=== PATIENT | male | born 1955 | race Caucasian/White ===

== ENCOUNTER 2018-09-30 15:58 | Emergency (ER) | payer MEDICARE, MEDICAID ==
[2018-09-30 17:05] VITALS: BP 150/78
--- NOTE | 2018-09-30 17:28 | UC ---
Respiratory Complaint HPI - HPI Summary HPI Summary: 63 yo male with 3-4 day hx of progressively worsening cough no f/c + left lat chest pain with cough productive at times wheezing out of neb solution - History of Current Complaint Chief Complaint: UCGeneralIllness Stated Complaint: COUGH,RIB PAIN Time Seen by Provider: 09/30/18 17:15 Hx Obtained From: Patient Onset/Duration: Gradual Onset, Lasting Days Timing: Constant Severity Initially: Moderate Severity Currently: None - unless coughing Pain Intensity: 0 Pain Scale Used: 0-10 Numeric Character: Cough: Productive Aggravating Factors: Deep Breaths Associated Signs And Symptoms: Positive: Pleuritic Chest Pain - with cough, Wheezing. Negative: Fever, Chills, Hemoptysis, Dizziness, Edema, URI, Nasal Congestion, Hoarseness, Sinus Discomfort - Allergies/Home Medications Allergies/Adverse Reactions: Allergies Allergy/AdvReac Type Severity Reaction Status Date / Time Penicillins Allergy Intermediate Hives Verified 09/30/18 17:05 Home Medications: Home Medications Albuterol HFA INHALER* [Ventolin HFA Inhaler*] 2 puff INH Q4H PRN 09/30/18 [ History Confirmed 09/30/18] Atorvastatin* [Lipitor*] 80 mg PO DAILY 09/30/18 [History Confirmed 09/30/18] Bupropion XL* [Wellbutrin XL *] 150 mg PO DAILY 09/30/18 [History Confirmed ] Clopidogrel TAB* [Plavix TAB*] 75 mg PO BEDTIME 09/30/18 [History Confirmed ] Diclofenac 1% GEL (NF) [Voltaren 1% GEL (NF)] 1 applic TOPICAL BID PRN 09/30/18 [History Confirmed 09/30/18] Diclofenac 1.3% PATCH (NF) [Flector 1.3% PATCH (NF)] 1 patch BID 09/30/18 [ History Confirmed 09/30/18] Fluticasone/Vilanterol [Breo Ellipta 200-25 Mcg INH] 2 each IH DAILY 09/30/18 [ History Confirmed 09/30/18] Meloxicam(NF) [Mobic(NF)] 7.5 mg PO DAILY 09/30/18 [History Confirmed 09/30/18] Mometasone NASAL (NF) [Nasonex (NF)] 1 spray DAILY 09/30/18 [History Confirmed 09/30/18] Montelukast Sodium TAB* [Singulair 10 MG TAB*] 1 tab DAILY 09/30/18 [History Confirmed 09/30/18] Morphine TAB (NF) [Morphine 30 MG TAB (NF)] 30 mg PO BID 09/30/18 [History Confirmed 09/30/18] Oxycodone TAB(NF) [Oxycodone HCl 10 MG] 10 mg PO SEE INSTRUCTIONS PRN 09/30/18 [ History Confirmed 09/30/18] Sacubitril/Valsartan (NF) [Entresto (NF)] 1 tab PO BID 09/30/18 [ History Confirmed 09/30/18] Tamsulosin CAP* [Flomax CAP*] 0.4 mg PO DAILY 09/30/18 [History Confirmed ] Umeclidinium [place] [Incruse Ellipta] 62.5 mcg IN BID 09/30/18 [History Confirmed 09/30/18] busPIRone TAB* [Buspar *] 75 mg PO TID 09/30/18 [History Confirmed 09/30/18] guaiFENesin ER TAB [Mucinex*] 600 mg PO BID 09/30/18 [History Confirmed 09/30/18 ] PMH/Surg Hx/FS Hx/Imm Hx Previously Healthy: Yes Cardiovascular History: Cardiac Disease, Hypertension, Myocardial Infarction Respiratory History: COPD, Pneumonia - Surgical History Surgical History: Yes Surgery Procedure, Year, and Place: OPEN HEART BYPASS TRIPLE 2004. hernia repair - Family History Known Family History: Positive: Hypertension, Respiratory Disease - Social History Alcohol Use: None Substance Use Type: None Smoking Status (MU): Heavy Every Day Tobacco Smoker Type: Cigarettes Amount Used/How Often: 1 ppd Length of Time of Smoking/Using Tobacco: 25-30 years Review of Systems All Other Systems Reviewed And Are Negative: Yes Constitutional: Positive: Negative Skin: Positive: Negative Eyes: Positive: Negative ENT: Positive: Negative Respiratory: Positive: Cough Cardiovascular: Positive: Chest Pain Gastrointestinal: Positive: Negative Genitourinary: Positive: Negative Motor: Positive: Negative Neurovascular: Positive: Negative Musculoskeletal: Positive: Negative Neurological: Positive: Negative Psychological: Positive: Negative Physical Exam Triage Information Reviewed: Yes Appearance: Well-Appearing, No Pain Distress, Well-Nourished Vital Signs: Initial Vital Signs Temp 98.6 F 09/30/18 16:59 Pulse 94 09/30/18 16:59 Resp 19 09/30/18 16:59 BP 150/78 09/30/18 16:59 Pulse Ox 94 09/30/18 16:59 Vital Signs Reviewed: Yes Eyes: Positive: Conjunctiva Clear ENT: Positive: Hearing grossly normal. Negative: Nasal congestion, Nasal drainage, Tonsillar swelling, Tonsillar exudate, Muffled voice, Hoarse voice Dental: Negative: Abscess @ Neck: Positive: Supple Respiratory: Positive: Wheezing. Negative: Respiratory distress, Decreased breath sounds Cardiovascular: Positive: RRR, No Murmur Musculoskeletal: Positive: ROM Intact, No Edema Neurological: Positive: Alert Psychological Exam: Normal Diagnostics - Radiology No standard instances Radiology Interpretation Completed By: Radiologist Summary of Radiographic Findings: stigmata of COPD, s/p CABG Re-Evaluation - Re-Evaluation First Eval Re-Evaluation Time: 18:22 Change: Improved - better air movement Respiratory Course/Dx - Differential Dx/Diagnosis Provider Diagnosis: Acute bronchitis with bronchospasm, Left-sided chest wall pain Discharge - Sign-Out/Discharge Documenting (check all that apply): Patient Departure All imaging exams completed and their final reports reviewed: Yes - Discharge Plan Condition: Stable Disposition: HOME Prescriptions: Albuterol 2.5MG/3ML (0.083%)* [Ventolin 2.5 MG/3 ML NEB.LAWANDA*] 2.5 mg INH QID PRN #1 neb.[place]anda PRN Reason: Wheezing Azithromycin TAB* [Zithromax TAB*] 250 mg PO DAILY #4 tab predniSONE [Deltasone 20 MG TAB] 20 mg PO DAILY #4 tab Referrals: Roni Henriquez PA [Primary Care Provider] - 3 Days - Billing Disposition and Condition Condition: STABLE Disposition: Home
[2018-09-30] MEDS ORDERED: Albuterol 2.5 MG/3 ML NEB.SOL* (0.083%) INH ONE (17:44)
[2018-09-30] MEDS ORDERED: Ipratropium 0.5MG/2.5ML NEB* 0.5 MG/2.5 ML NEB.SOLN INH ONE (17:44)
[2018-09-30] MEDS ORDERED: Azithromycin TAB* 250 MG PO ONE (17:45)
[2018-09-30] MEDS ORDERED: predniSONE TAB* 20 MG PO ONE (17:45)
== END 2018-09-30 18:32 | disposition home or self-care (01) ==
LOC: UCCORT 15:58
DX: J98.01 Acute bronchospasm (principal); R07.89 Other chest pain; J44.9 Chronic obstructive pulmonary disease, unspecified; I11.9 Hypertensive heart disease without heart failure; I25.2 Old myocardial infarction; Z95.1 Presence of aortocoronary bypass graft; F17.210 Nicotine dependence, cigarettes, uncomplicated
CPT/HCPCS: 71046; 99213; A9270-GY; G0463; J7512